=== PATIENT | female | born 1985 | race Asian ===

== ENCOUNTER 2021-03-13 08:04 | Emergency (ER) | payer OTHER, SELFPAY ==
--- NOTE | ~2021-03-13 | XR_ITS ---
EXAMINATION: XR chest 1V portable 03/13/2021 08:46 INDICATION: Rapid heart rate PROCEDURE: 2 view chest COMPARISON: No prior studies for comparison. FINDINGS: The lungs are clear. The cardiomediastinal silhouette is within normal limits. There are no pleural effusions. There is no pneumothorax suspected. IMPRESSION: 1: NO ACUTE CARDIOPULMONARY DISEASE. Reviewed, dictated and finalized at location A. RAL RESOURCES SPECIALIST
--- NOTE | 2021-03-13 08:08 | ECG_ITS ---
Measurements Intervals [place] Rate: 170 P: NE: 0 QRS: 54 QRSD: 104 T: 5 QT: 263 QTc: 443 Interpretive Statements SUPRAVENTRICULAR TACHYCARDIA BORDERLINE ST-T WAVE ABNORMALITY- ANTEROLAT/INF LEADS ABNORMAL ECG Electronically Signed On 03-13-2021 14:07:01 ASSET AVAILABILITY LEADER by Shaka Live D.O.
[2021-03-13 08:10] VITALS: BP 134/96; PULSE 166; RESP 21; TEMP 36.4; O2SAT 97
[2021-03-13] MEDS: ADENOSINE IV SOLN 6 MG/2 ML VIAL IV PUSH (08:24)
[2021-03-13] MEDS: ADENOSINE IV SOLN 6 MG/2 ML VIAL 12 MG IV PUSH ×2 (08:26→08:28)
--- NOTE | 2021-03-13 08:31 | ED.ARRPALP ---
HPI - Arrhythmia/Palpitations General Chief Complaint: Arrhythmia/Palpitations Stated Complaint: high HR x2 hours Time Seen by Provider: 03/13/21 08:31 Source: patient Mode of arrival: ambulatory Limitations: no limitations History of Present Illness HPI narrative: Patient is a 35-year-old female complaining of palpitations that started this morning. Patient states that she drank alcohol last night, had nausea and vomiting diarrhea this morning, and suddenly had palpitations after. Patient denies any chest pain, shortness of breath, abdominal pain, fever or chills. Related Data Allergies Allergy/AdvReac Type Severity Reaction Status Date / Time No Known Allergies Allergy Verified 03/13/21 08:35 Review of Systems Review of Systems: All systems reviewed & are unremarkable except as noted in HPI and below Constitutional: Constitutional: Denies body ache(s), Denies chills, Denies excessive sweating, Denies fatigue, Denies fever(s), Denies headache(s), Denies lethargy, Denies malaise, Denies weakness and Denies weight loss Eyes: Eyes: Denies blurry vision, Denies change in vision and Denies loss of vision ENT: Denies dizziness, Denies ear discharge, Denies headache(s), Denies lip swelling, Denies epistaxis, Denies nasal congestion, Denies neck pain, Denies throat swelling and Denies tongue swelling Cardiovascular: Cardiovascular: Denies chest pain, Denies chest pain at rest, Denies chest pain with activity, Denies diaphoresis, Denies edema, Denies irregular heart rhythm, Denies lightheadedness, Denies dyspnea and Denies dyspnea on exertion Respiratory: Respiratory: Denies chest congestion, Denies cough, Denies hemoptysis, Denies dyspnea and Denies dyspnea on exertion Gastrointestinal: Gastrointestinal: Denies abdominal pain, Denies melena, Denies hematochezia, Reports diarrhea, Reports nausea, Reports vomiting and Denies hematemesis Musculoskeletal: Musculoskeletal: Denies abnormal gait, Denies deformity, Denies joint swelling, Denies limited range of motion, Denies neck pain and Denies numbness Neurologic: Denies Abnormal speech present, Denies abnormal gait, Denies confusion, Denies dizziness, Denies headache(s), Denies focal weakness, Denies loss of vision, Denies numbness, Denies Other visual disturbances, Denies Sensory deficit (Neuro) and Denies weakness Psychiatric: Psychiatric: Denies confusion, Denies depression, Denies auditory hallucinations, Denies homicidal ideation and Denies suicidal ideation Endocrine: Endocrine: Denies cold intolerance, Denies excessive sweating, Denies fatigue, Denies heat intolerance and Denies palpitations Hematologic/Lymphatic: Hematologic/Lymphatic: Denies easy bleeding and Denies easy bruising Allergic/Immunologic: Allergic/Immunologic: Denies lip swelling, Denies throat swelling and Denies tongue swelling PMFSH Comments Past medical history: None Family history: Hypertension, diabetes Social history: Non-smoker, occasional EtOH use, no drug use Exam Const: General: cooperative, healthy appearing, comfortable, no acute distress, well developed, alert and awake; No confusion Orientation/consciousness: oriented to person, oriented to place, oriented to time, patient oriented x3 and No confusion Limitations: no limitations HENMT: Head: normal to inspection, normocephalic and atraumatic Ears: hearing grossly normal bilaterally, TM normal on the right and TM normal on the left General nose exam: Normal external nose present, Normal nares present and No nasal discharge present Face and sinus: normal facial exam Mouth: Yes Normal oral and palatal mucosa present, Yes lip normal, Yes tongue normal and Yes oropharynx normal Throat: posterior oropharynx normal, tonsils normal and uvula midline Eyes: General: appearance normal, both eyes and all related structures Pupils: Equal, round and reactive pupils present EOM: EOMs intact bilaterally Neck: Neck: normal visual inspection, full ROM, no lymphaden
--- NOTE | 2021-03-13 08:33 | ECG_ITS ---
Measurements Intervals [place] Rate: 96 P: 46 NE: 146 QRS: 55 QRSD: 86 T: 34 QT: 354 QTc: 449 Interpretive Statements SINUS RHYTHM BASELINE ARTIFACT- II, III, AVF, V1 NORMAL ECG Electronically Signed On 03-13-2021 14:07:33 BARROW WORKER HELPER by Shaka Live D.O.
[2021-03-13] MEDS: SODIUM CHLORIDE 0.9% IV 1,000 ML 999 ML (08:39)
[2021-03-13 08:45] VITALS: BP 121/80; PULSE 90; RESP 18; O2SAT 99
[2021-03-13 08:57] LABS: Prothrombin Time 12.8 Seconds (11.1-14.7)
[2021-03-13 08:58] LABS: Alanine Aminotransferase 44 U/L (4-35); Albumin Level 4.7 g/dL (3.5-5.1); Alkaline Phosphatase 71 U/L (38-126); Anion Gap 13 mmol/L (8-16); Aspartate Amino Transferase 43 U/L (14-36); Bilirubin,Total 0.4 mg/dL (0.2-1.3); Blood Urea Nitrogen 12 mg/dL (7-17); Calcium 9.1 mg/dL (8.4-10.2); Carbon Dioxide 22 mmol/L (22-30); Chloride 102 mmol/L (98-107); Estimated CRCL calculation 80 ml/min; Estimated Glomerular Filt Rate > 60; Glucose 135 mg/dL (65-110); Partial Thromboplastin Time 24.8 SECONDS (22.3-36.8); Sodium 137 mmol/L (137-145)
[2021-03-13] MEDS: SODIUM CHLORIDE 0.9% IV 1,000 ML 999 ML IV CONT (09:05)
[2021-03-13 09:09] LABS: Troponin I 0.014 ng/mL (0.000-0.034)
[2021-03-13 09:10] LABS: Basophils Percent Auto 0.2 % (0.2-1.2); Eosinophils Percent Auto 0.1 % (0-4.4); Hematocrit 43.3 % (37.0-47.0); Hemoglobin 14.7 g/dL (12.0-15.0); Immature Granulocyte Absolute 0.07 K/mm3 (0.00-0.031); Immature Granulocyte Percent A 0.4 % (0-0.5); Lymphocytes Absolute Auto 1.51 K/mm3 (0.9-3.2); Lymphocytes Percent Auto 9.6 % (18.3-44.2); Mean Corpuscular HGB Conc 33.9 g/dl (32-36); Mean Corpuscular Volume 88.4 fl (80-100); Mean Platelet Volume 10.7 fl (7.4-10.4); Monocytes Absolute Auto 0.5 K/mm3 (0.1-0.6); Neutrophils Absolute Auto 13.7 K/mm3 (1.3-6.7); Neutrophils Percent Auto 86.7 % (45.5-73.1); Platelet Count Result 429 k/mm3 (150-375); White Blood Count 15.8 K/mm3 (4.5-10.0)
[2021-03-13 09:20] LABS: D Dimer 0.27 ug/mL (<0.48)
[2021-03-13 11:04] VITALS: BP 112/76; PULSE 90; RESP 18; O2SAT 100
== END 2021-03-13 11:05 | disposition home or self-care (01) ==
PROVIDERS: Emergency Provider Emergency Medicine
DX: I47.1 Supraventricular tachycardia (principal); I45.10 Unspecified right bundle-branch block; R94.31 Abnormal electrocardiogram [ECG] [EKG]
CPT/HCPCS: 36415; 71045; 80053; 84484; 85025; 85380; 85610; 85730; 93005; 96361; 96374; 99284; J0153; J7030

== ENCOUNTER 2022-11-18 10:07 | Outpatient (CLI) | payer OTHER, SELFPAY ==
[2022-11-18 17:12] LABS: Hematocrit 40.9 % (37.0-47.0); Hemoglobin 13.2 g/dL (12.0-15.0); Mean Corpuscular HGB Conc 32.3 g/dl (32-36); Mean Corpuscular Hemoglobin 30.2 pg (26-34); Mean Corpuscular Volume 93.6 fl (80-100); Mean Platelet Volume 10.1 fl (7.4-10.4); Platelet Count Result 325 k/mm3 (150-375); Red Blood Count 4.37 M/mm3 (4.2-5.4); Red Cell Distribution Width 11.9 % (11.5-14.5); White Blood Count 6.9 K/mm3 (4.5-10.0)
[2022-11-18 17:14] LABS: Iron 103 ug/dL (37-170)
[2022-11-18 17:18] LABS: Alanine Aminotransferase 33 U/L (6-35); Albumin Level 4.4 g/dL (3.5-5.1); Alkaline Phosphatase 63 U/L (38-126); Anion Gap 10 mmol/L (8-16); Aspartate Amino Transferase 41 U/L (14-36); Bilirubin,Total 0.6 mg/dL (0.2-1.3); Blood Urea Nitrogen 11 mg/dL (7-17); Calcium 9.3 mg/dL (8.4-10.2); Carbon Dioxide 25 mmol/L (22-30); Chloride 103 mmol/L (98-107); Cholesterol 203 mg/dL (0-200); Estimated Glomerular Filt Rate > 60; Glucose 93 mg/dL (65-110); HDL Direct 52 mg/dL; Potassium 4.6 mmol/L (3.4-5.0); Sodium 138 mmol/L (137-145); Triglycerides 137 mg/dL (<150)
[2022-11-18 17:29] LABS: LDL Cholesterol Direct 112 mg/dL
[2022-11-18 19:38] LABS: Hemoglobin A1C 5.2 % (<5.7)
[2022-11-18 20:16] LABS: Percent Iron Saturation 24 % (20-50)
== END 2022-11-18 10:08 | disposition home or self-care (01) ==
LOC: ANHGOSHLAB 10:08
PROVIDERS: PCP Family Medicine; Visit Provider Family Medicine
DX: D64.9 Anemia, unspecified (principal); E66.3 Overweight; Z79.899 Other long term (current) drug therapy; R73.09 Other abnormal glucose
CPT/HCPCS: 36415; 80053; 80061; 82728; 83036; 83540; 83550; 84443; 85027

== ENCOUNTER 2024-08-28 08:12 | Outpatient (CLI) | payer OTHER, SELFPAY ==
--- OUTSIDE RECORDS SUMMARY | 2024-08-28 08:14 | XMS_ITS | Clinical Summary ---
Author Organization [facility] Address [facility] [place] [address] Care Team Providers Care Product Steward Name Role Phone Sam Ogden MD Primary Care Provider [phone] Allergies No known active allergies Medications loratadine (CLARITIN) 10 MG tablet daily. Active LO LOESTRIN FE 1 MG-10 MCG / 10 MCG Tab Take 1 tablet by mouth daily. 02/15/2021 Active liraglutide, Weight Management, (SAXENDA) 18 MG/3ML injectionIndicat ions:Overweight (BMI 25.0-29.9) Start With: 0.6 mg (0.1 mL) SC once daily x7 days, then 1.2 mg (0.2 mL) SC once daily x7 days, then 1.8 mg (0.3 mL) SC once daily x 7 days, then 2.4 mg (0.4 mL) SC once daily x 7 days, then 3 mg (0.5 mL) SC once daily. 3 mL 6 11/08/2021 Active Biotin 5000 MCG TabIndications:H air loss Take 1 tablet by mouth daily. 90 tablet 1 11/08/2021 Active Active Problems Problem Noted Date Diagnosed Date Prediabetes 03/25/2021 Lipids abnormal 03/25/2021 History of cardiac arrhythmia 03/24/2021 Resolved Problems Problem Noted Date Diagnosed Date Resolved Date Iron deficiency anemia 09/28/201503/24 Vitamin D deficiency 09/28/2015 022 Immunizations Immunization Administration Dates Next Due Influenza Adult (Generic) 11/27/2020,11/26/2018, 11/27/2017 Tdap (Generic) 09/23/2015 Family History Medical History Relation Comments Hyperlipidemia Father Hypertension Father Afib Maternal Grandfather CABG Maternal Grandfather x1 Heart Attack Maternal Grandfather Pacemaker Maternal Grandfather CABG Maternal Grandmother x2 Diabetes Maternal Grandmother Pacemaker Maternal Grandmother Heart Attack Paternal Grandfather Relation Status Comments Brother Alive Father Alive Maternal Grandfather (Age 70) Maternal Grandmother (Age 85) Mother Alive Paternal Grandfather (Age 56) Paternal Grandmother Alive Social History Tobacco Use Types Packs/Day Years Used Date Smoking Tobacco: Never Smokeless Tobacco: Never Tobacco Cessation:Counseling Given: Yes Comments:Counseled by Dr Ogden Alcohol Use Standard Drinks/Week Comments Not Currently 2 (1 standard drink = 0.6 oz pur e alcohol) PHQ-2 Answer Date Recorded PHQ-2 Score - If the patient scores above 3, please move on to questions 3-9 0 11/08/2021 Comments No Sex and Gender Information Value Date Recorded Sex Assigned at Not on file Legal Sex Female 5:51 PM CDT Gender Identity Female 03/23/2021 10:14 AM STRAND GALVANIZER Sexual Orientation Not on file 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 on file Not on file Not on file Last Filed Vital Signs Vital Sign Reading Time Taken Comments Blood Pressure 119/78 11/08/2021 11:16 AM CDT Pulse 83 11/08/2021 11:16 AM CDT Temperature 36.8 C (98.3 F) 11/08/2021 11:16 AM CDT Respiratory Rate 16 11/08/2021 11:16 AM CDT Oxygen Saturation 98% 11/08/2021 11:16 AM CDT Inhaled Oxygen Concentration - - Weight 66.2 kg (146 lb) 11/08/2021 11:16 AM CDT Height 152.4 cm (5') 11/08/2021 11:16 AM CDT Body Mass Index 28.51 11/08/2021 11:16 AM CDT Plan of Treatment Health Maintenance Due Date Last Done Comments Cervical Cancer Screening Pa p Smear (Age 30 to 64) Every 3 Years 1983 Hepatitis B Vaccines (1 of 3 - 19+ 3-dose series) 07/21/2002 Annual Physical 03/24/2022 03/24/2021 Mammogram Screening 2023 COVID-19 Vaccine (4 - 2023-2 5 season) 2023 01/07/2021, 06/02/2020, 05/11/2020 PHQ-2 (Physician [place]) 02/28/2024 Cervical Cancer Screening Pa p with HPV Testing (Age 30 to 64) Every 5 Years 01/15/2025 01/16/2020 Cervical Cancer Screening wi th HPV 01/15/2025 DTaP, Tdap and Td Vaccines ( 2 - Td or Tdap) 09/22/2025 09/23/2015 Hepatitis C Completed 03/24/2021 HPV Vaccines Aged Out No longer eligi ble based on patient's age to complete this topic Meningococcal B Vaccine Aged Out No l onger eligible based on patient's age to complete this topic Meningococcal Vaccine Aged Out No afshan godfrey eligible based on patient's age to complete this topic Pneumococcal Vaccine: Pediatrics (0 to 5 Years) and At-Risk Patients (6 to 49 Years) Aged Out No longer eligible b ased on patient's age to complete this topic RSV Immunizations Under 20 Months Aged Out No longer eligible b ased on patient's age to complete this topic Procedures Procedure Name Priority Date/Time Associated Diagnosis Comments HEPATITIS C ANTIBODY Routine 03/24/2021 11:01 AM STRAND GALVANIZER Annual physical exam Encounter for medical examination to establish care General medical exam Encounter for hepatitis C screening test for low risk patient OUTSIDE CYTOPATH CERV/VAG INTERPRET (PAP) 01/16/2020 from Last 3 Months or Most Recently Relevant to Health Maintenance Results * HEPATITIS C ANTIBODY (03/24/2021 11:01 AM STRAND GALVANIZER) HEPATITIS C AB NON-REACTI VE NON-REACT ALEJANDRO 03/24/2021 9:57 PM STRAND GALVANIZER [facility] Comment: ANTIBODIES TO HCV NOT DETECTED. DOES NOT EXCLUDE THE POSSIBILITY OF EXPOSURE TO HCV. 03/24/2021 11:0 1 AM STRAND GALVANIZER Sam Ogden MD LABORATORY Final Result [facility] [address] [place] [address], [id number] * OUTSIDE CYTOPATH VAG/CERV PAP WITH HPV (01/16/2020) 01/16/2020 Narrative 01/16/2020 Ordered by an unspecified provider. us Documents Scanned SCANNING Final Result from Last 3 Months or Most Recently Relevant to Health [place] [address] [employer] Care Teams Product Steward Relationship Specialty Start Date End Date Sam Ogden MD [address] [address] PCP - General INTERNAL MEDICINE 03/23/21
--- OUTSIDE RECORDS SUMMARY | 2024-08-28 08:14 | XMS_ITS | Clinical Summary ---
Author Organization [facility] [address] Address [address] [place] [address] Care Team Providers Care Chief Compliance Officer Name Role Phone No, Physician Primary Care Provider [phone] Encounters Date Type Department Care Team Description 07/31/2024 10:42 AM CDT - 07/31/2024 11:59 PM CDT Hospital Encounter [facility] [address] 1 Breast [facility] [address] [place] [address] Screening mammogram, encounter for Discharge Disposition: Discharge to home or self care from Last 3 Months Social History Tobacco Use Types Packs/Day Years Used Date Smoking Tobacco: Never Assessed Comments No Sex and Gender Information Value Date Recorded Sex Assigned at Not on file Legal Sex Female 9:21 AM RING ATTACHER Gender Identity Not on file Sexual Orientation Not on file Obstetrics History Para Term AB IAB SAB Ectopic Multiple Livin g Live Births 1 Date Outcome GA Total Labor Labor/2nd/3rd Weight Sex Type Anes PTL [place] A1 A5 Name Clin Last Filed Vital Signs Vital Sign Reading Time Taken Comments Blood Pressure - - Pulse - - Temperature - - Respiratory Rate - - Oxygen Saturation - - Inhaled Oxygen Concentration - - Weight 59 kg (130 lb) 07/31/2024 11:00 AM CDT Height 152.4 cm (5') 07/31/2024 11:00 AM CDT Body Mass Index 25.39 07/31/2024 11:00 AM CDT Plan of Treatment Health Maintenance Due Date Last Done Comments Cervical Cancer Screening 1983 Depression Screening 1983 Hepatitis C Screening 1983 Varicella Vaccines (1 of 2 - 13+ 2-dose series) 07/21/1996 Hepatitis B Screening 07/21/2001 Regular Well Visit/Exam 18-64 07/21/2001 Covid-19 Vaccine ( season) 2023 11/18/2022, 11/28/2021, 01/05/2021, Additional history exists Influenza Vaccine (Season Ended) 2024 11/18/2022, 11/28/2021, 11/27/2020, Additional history exists Breast Cancer Screening-Mammogram 07/31/2025 07/31/2024, 07/31/2023 DTaP/Tdap/Td Vaccine (2 - Td or Tdap) 09/22/2025 09/23/2015 HPV Vaccines Aged Out No longer eligi ble based on patient's age to complete this topic Pneumococcal vaccine <65 Aged Out No longer eligible based on patient's age to complete this topic Procedures Procedure Name Priority Date/Time Associated Diagnosis Comments SCREENING MAMMOGRAM BILATERAL W BRIAN Schedule Routine, Read Routine (OP Routine) 07/31/2024 11:00 AM CDT Screening mammogram, encounter for from Last 3 Months Results * Screening Mammogram Bilateral W Brian (07/31/2024 11:00 AM CDT) Anatomical Region Laterality Modality Breast Bilateral Mammography Impressions 07/31/2024 11:15 AM CDT BI-RADS ATLAS category (overall): 1 - Negative There is no mammographic evidence of malignancy. A 1 year screening mammogram is recommended. The patient has been or will be contacted. We recommend annual screening mammography for women at average risk of breast cancer beginning at age 40, based on guidelines of the [place] [employer] (ACR Practice Parameter for the Performance of Screening and Diagnostic Mammography) and [place] [employer]. For women with and elevated risk of breast cancer, please refer to the ACR Practice Parameter for specific screening recommendations. The patient will be entered into a reminder system with a target due date of 1 year for her next screening exam. Narrative 07/31/2024 11:15 AM CDT Screening Mammogram Bilateral W Brian: 07/31/24 The study was acquired using full field digital technology and interpreted from soft copy. 2D digital mammographic views, as well as 3D digital tomosynthesis were performed in the CC and MLO projections. CLINICAL: Screening mammogram, encounter for. No relevant medical history has been documented for this patient. No known family history of breast cancer. COMPARISON: Baseline Screening Mammography. No prior mammography is available for comparison. BREAST TISSUE: The breasts are heterogeneously dense, which may obscure small masses. FINDINGS: No suspicious masses, suspicious calcifications, or other suspicious findings are seen within either breast. us Self Screening Mammogram IMG MAMMO PROCEDURES Fi nal Result from Last 3 Months Insurance [facility] Care Teams Chief Compliance Officer Relationship Specialty Start Date End Date No, Physician PCP - General 05/20/24
--- OUTSIDE RECORDS SUMMARY | 2024-08-28 08:14 | XMS_ITS | Referral Summary ---
Author Organization [facility] [address] Address [address] [place] [address] Care Team Providers Care Hyperion Administrator Name Role Phone No, Physician Primary Care Provider [phone] Encounters Date Type Department Care Team Description 07/31/2024 10:42 AM CDT - 07/31/2024 11:59 PM CDT Hospital Encounter [facility] [address] 1 Breast [facility] [address] [place] [address] Screening mammogram, encounter for Discharge Disposition: Discharge to home or self care from Last 3 Months Social History Tobacco Use Types Packs/Day Years Used Date Smoking Tobacco: Never Assessed Comments No Sex and Gender Information Value Date Recorded Sex Assigned at Not on file Legal Sex Female 9:21 AM MAINSPRING REVERSE WINDER Gender Identity Not on file Sexual Orientation Not on file Last Filed Vital Signs [...] 07/31/2024 11:00 AM CDT Plan of Treatment Not on file Procedures Procedure Name Priority Date/Time Associated Diagnosis Comments SCREENING MAMMOGRAM BILATERAL W SORAYA Schedule Routine, Read Routine (OP Routine) 07/31/2024 11:00 AM CDT Screening mammogram, encounter for from Last 3 Months Results * Screening Mammogram Bilateral W Soraya (07/31/2024 11:00 AM CDT) Anatomical Region Laterality [...] age 40, based on guidelines of the [place] [employer] (ACR Practice Parameter for the Performance of Screening and Diagnostic Mammography) and [place] [employer]. For women with and elevated risk of breast cancer, please refer to the ACR Practice Parameter for specific screening recommendations. The patient will be entered into a reminder system with a target due date of 1 year for her next screening exam. Narrative 07/31/2024 11:15 AM CDT Screening Mammogram Bilateral W Soraya: 07/31/24 The study was acquired using full [...] nal Result from Last 3 [place] [address] [employer] Care Teams Hyperion Administrator Relationship Specialty Start Date End Date No, Physician PCP - General 05/20/24
--- OUTSIDE RECORDS SUMMARY | 2024-08-28 08:14 | XMS_ITS | Encounter Summary ---
Author Organization [facility] Address [address] [place] [address] Care Team Providers Care Silk Screen Etcher Name Role Phone Sam Ogden MD Primary Care Provider [phone] Encounter Details Date Type Department Care Team (Latest Contact Info) Description 11/15/2021 [employer] Message Enc [facility] - [address] [place] [address] [employer], [facility] Provider weight loss medication Social History Tobacco Use Types Packs/Day Years Used Date Smoking Tobacco: Never Smokeless Tobacco: Never Comments:Counseled by Dr Mami gonzalez Alcohol Use Standard Drinks/Week Comments Not Currently [...] CDT Gender Identity Female 03/23/2021 10:14 AM EDITOR NEWS Sexual Orientation Not on file 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 No / Unsure 11/08/2021 11:04 AM CDT documented as of this encounter Plan of Treatment Not on file documented as of this encounter Visit Diagnoses Not on filedocumented in this encounter Additional Health Concerns Assessment Noted Time PHQ-9 Depression Total Score: 0 03/24/19 10:44 AM EDITOR NEWS documented as of this encounter Care Teams Silk Screen Etcher Relationship Specialty Start Date End Date Sam Ogden MD [address] [address] PCP - General INTERNAL MEDICINE 03/23/21 documented as of this encounter
[2024-08-28 12:31] LABS: Hematocrit 42.5 % (37.0-47.0); Hemoglobin 13.4 g/dL (12.0-15.0); Mean Corpuscular HGB Conc 31.5 g/dl (32-36); Mean Corpuscular Hemoglobin 29.3 pg (26-34); Mean Corpuscular Volume 93.0 fl (80-100); Platelet Count Result 312 k/mm3 (150-375); Red Blood Count 4.57 M/mm3 (4.2-5.4); White Blood Count 8.5 K/mm3 (4.5-10.0)
[2024-08-28 14:26] LABS: Alanine Aminotransferase 13 U/L (6-35); Albumin Level 4.2 g/dL (3.5-5.1); Alkaline Phosphatase 46 U/L (38-126); Anion Gap 10 mmol/L (4-12); Aspartate Amino Transferase 44 U/L (14-36); Bilirubin,Total 0.3 mg/dL (0.2-1.3); Blood Urea Nitrogen 13 mg/dL (7-17); Calcium 9.4 mg/dL (8.4-10.2); Carbon Dioxide 22 mmol/L (22-30); Chloride 106 mmol/L (98-107); Cholesterol 174 mg/dL (0-200); Estimated Glomerular Filt Rate > 60; Glucose 84 mg/dL (65-110); HDL Direct 48 mg/dL; Potassium 4.2 mmol/L (3.4-5.0); Sodium 138 mmol/L (137-145); Total Protein 7.5 g/dL (6.3-8.2); Triglycerides 123 mg/dL (<150)
[2024-08-28 14:57] LABS: Thyroid Stimulating Hormone 2.500 uIU/mL (0.465-4.680)
== END 2024-08-28 08:13 | disposition home or self-care (01) ==
LOC: ANHGOSHLAB 08:12
PROVIDERS: PCP Family Medicine; Visit Provider Family Medicine
DX: E66.3 Overweight (principal); Z79.899 Other long term (current) drug therapy; Z00.00 Encounter for general adult medical examination without abnormal findings
CPT/HCPCS: 36415; 80053; 80061; 84443; 85027